=== PATIENT | female | born 1980 | race Caucasian/White ===

== ENCOUNTER 2019-01-22 08:44 | Day surgery (SDC) | payer OTHER, SELFPAY ==
[2019-01-11 14:59] VITALS: BMI 24.9
[2019-01-22] VITALS (12 sets, daily range): BP systolic 82–107; BP diastolic 51–69; PULSE 53–85; RESP 6–17; TEMP 36.1–36.9; O2SAT 95–100; BMI 24.9
--- NOTE | 2019-01-22 | PATH_ITS ---
[facility] Accession Number: [id number] . 01 Material submitted: . endometrium - ENDOMETRIAL CURRETINGS . 02 Diagnosis: Endometrial Curettings: Portions of secretory endometrium with patchy regions of breakdown; negative for glandular hyperplasia, cytologic atypia, and malignancy. MRV/01/25/2019 . 02 Electronically signed: . Blossom Del Rio MD, Pathologist NPI- [id number] . 01 Gross description: . ENDOMETRIAL CURRETINGS: Received in formalin are minute fragments of mucoid and hemorrhagic material measuring 0.6 x 0.6 x 0.3 cm in aggregate. Submitted in toto in 1 cassette. /[facility] /DM . 02 Pathologist provided ICD-10: N85.00 . 02 CPT . 586172 Performed at: 01 [facility] [address] [id number] MD Obdulio Toth MD Phone: [phone] Performed at: 02 [facility] [address] [place], [place] [id number] MD Katheryn Esparza MD Phone: [phone]
[2019-01-22] MEDS: LACTATED RINGERS 1,000 ML 42 ML IV ×2 (09:30→11:22)
--- NOTE | 2019-01-22 10:10 | SUR.OPER ---
Lithotomy on padded OR bed, head on pillow, arms secured on padded arm boards at <90 degrees abduction. Legs secured in padded yellow fins stirrups.
[2019-01-22] MEDS: APREPITANT 40 MG CAPSULE PO (10:20)
--- NOTE | 2019-01-22 10:21 | PM.PREOP ---
Pre-operative Note Interval Note History & Physical reviewed/Exam performed by Physician: Yes Changes to H&P: No
--- NOTE | 2019-01-22 10:21 | PM.HP.1 ---
History of Present Illness Date Patient Seen: 01/22/19 Time Patient Seen: 10:21 Chief complaint: [id number] Narrative: Patient is a 38-year-old woman 6 para 4 who presents with severe dysmenorrhea and menorrhagia for a D&C hysteroscopy and NovaSure endometrial ablation Patient History Medical History (Updated 01/11/19 @ 15:03 by Gemini Robledo RN) History of endometrial biopsy (Acute) Menometrorrhagia (Acute) Surgical History (Updated 01/22/19 @ 09:02 by Ama Bolaños RN) H/O oral surgery (Acute) History of colposcopy (Acute) S/P LEEP (Resolved ~2001) S/P breast augmentation (Resolved ~2015) Social History household members: spouse Smoking Status: Never smoker Family & Social History Social History: household members spouse Tobacco & Substance use: Smoking Status Never smoker Meds Home Medications Medication Instructions Recorded Confirmed Type No Known Home Medications 03/24/18 01/22/19 History Allergies Allergy/AdvReac Type Severity Reaction Status Date / Time No Known Drug Allergies Allergy Verified 01/22/19 09:00 Exam Vital Signs (past 8 hours): - 01/22/19 09:00 Temperature 97.6 F Pulse Rate 84 Respiratory Rate 15 Blood Pressure 102/69 Pulse Oximetry 100 Oxygen Delivery Method Room Air Narrative Exam Narrative: HEENT: No thyromegaly, no anterior cervical or supraclavicular lymphadenopathy. Lungs:Clear to auscultation bilaterally, no wheezes. Cardiovascular: Regular rate and rhythm, no murmurs, rubs, or gallops. Abdomen: No scars. No hepatosplenomegaly. No masses palpable. External genitalia: Normal Vagina: Normal Cervix: Normal Bimanual exam: 8 Week size uterus. Mobile. Rectal: No masses. Assessment & Plan Assessment & Plan narrative: Assessment: 38-year-old 6 para 4024 with severe dysmenorrhea and menorrhagia Plan: D&C hysteroscopy with NovaSure endometrial ablation The risks, benefits, and alternatives to the procedure were explained to the patient. The risks including bleeding, infection, and uterine perforation. She understands these risks and agrees to proceed. A full PAR-Q was held and consent form was signed. Time Spent With Patient Time with patient: 15-24 minutes
--- NOTE | 2019-01-22 11:04 | P.OP_ITS ---
Operative Date/Time/Diagnoses Date of procedure: 01/22/19 Time of procedure: 11:01 Pre-op diagnosis: Menorrhagia Severe dysmenorrhea Post-op diagnosis: same Procedure: Procedures Operation Date: 01/22/19 09:45 Actual Procedures Side Surgeon p Hysteroscopy D&c w/Endometrial Ablation Nicole Mcdonough MD Indications: Menorrhagia Severe dysmenorrhea Surgeon: Nicole Mcdonough Anesthesia Type: General (LMA) Operative Notes Findings: 8 week size anteverted uterus Both fallopian tube ostia observed No polyps or fibroids Closure Type: not applicable Specimen(s): endometrial curettings Estimated blood loss (mL): 10 Blood products transfused: none Procedure in detail: After informed consent was obtained, the patient was taken to the operating room where she was placed in the dorsal supine position. After adequate LMA general anesthesia was achieved, she was placed in the dorsal lithotomy position, and prepped and draped in the usual sterile fashion. a time-out was performed. A bivalve speculum was placed into the vagina and the anterior lip of the cervix grasped with a single-tooth tenaculum. The cervical os was sequentially dilated to the # 8 Hegar dilator. The hysteroscope passed easily into the endometrial cavity. Initial inspection with the hysteroscope revealed the findings noted above. The hysteroscope was removed from the uterus. The uterus was measured from the internal os to the fundus of the uterus and measured 4.5 cm. This was set on the NovaSure catheter as well as the generator. NovaSure catheter passed easily into the endometrial cavity and was opened. The width of the uterus was 4.4 cm. This was set on the NovaSure generator. This indicated a power of 109 w. The cervix was capped, the cavity assessment was performed and passed. The cycle was initiated and lasted 120 seconds. At the completion of the cycle the NovaSure catheter was closed, the cervix was then capped, and the catheter was removed from the uterus. Single- tooth tenaculum was removed from the anterior lip of the cervix. The bivalve speculum was removed from the vagina. Sponge, lap, and instrument counts was correct x2. The patient tolerated the procedure well, and was taken to PACU in stable condition. Complications: none Post-operative Condition: stable Disposition: PACU Plan for aftercare: Home after recovery
[2019-01-22] MEDS: ACETAMINOPHEN 325 MG TABLET 650 MG PO (11:54)
--- NOTE | 2019-01-22 12:06 | SUR.PHASEII ---
Report received. Pt reported 7/10 pain. Denied any needs at this time. Call light within reach.
[2019-01-22] MEDS: hydrOXYzine 50 MG/ML INJ 25 MG IM (13:06)
[2019-01-22] MEDS: ONDANSETRON 4 MG/2 ML INJ IV (13:06)
--- NOTE | 2019-01-22 13:13 | SUR.PHASEII ---
Received report from Riki Dolan. Patient in [place] #4 OPD. Pain evaluation: pain level 8/10. Cramping/Aching abdomen. Cesilia pad dry. Skin cool/pale. IV patent and flowing. Patient also experiencing nausea.
--- NOTE | 2019-01-22 13:15 | SUR.PHASEII ---
Dr. Mcdonough stopped by to see patient in OPD. Patient pain level 9/10. Up to bathroom to void. Scant amount of vaginal bleeding. Gait steady. Medicated with Vistaril and Zofran per verbal order of Dr. Mcbride. Vital signs stable. Continue with plan of care. gama
[2019-01-22] MEDS: fentaNYL 100 MCG/2 ML INJ 50 MCG IV ×2 (13:19→13:43)
--- NOTE | 2019-01-22 14:02 | SUR.PHASEII ---
Pain management Nurses Note: Pain level improved to 5/10. No complaints of nausea. Skin color improved.
--- NOTE | 2019-01-22 14:40 | SUR.PHASEII ---
Pain reassessment note: VSS, O2 sat WNL, Pain level 5/10. No complains of nausea. Patient stated that she wants to go home and curl up in bed. IV discontinued. Up to bathroom to dress for discharge.
--- NOTE | 2019-01-22 14:41 | SUR.PHASEII ---
Discharge note: Prior to discharge, patient complained of feeling dizzy and nauseas. Patient stated that this is how she feels at home when she gets cramps. She shared that she just wanted to go home. Ate a few crackers and sips of vika mulu. No emesis. VSS prior to d/c to home. Discharged instructions reviewed with patient understanding. Discharged at 1440 [address].
== END 2019-01-22 14:40 | disposition home or self-care (01) ==
PROVIDERS: PCP Obstetrics & Gynecology; Visit Provider Obstetrics & Gynecology
PROC: 0U5B8ZZ Destruction of Endometrium, Via Natural or Artificial Opening Endoscopic (ICD-10-PCS; CPT 58563; principal; 2019-01-22 09:45)
DX: N85.00 Endometrial hyperplasia, unspecified (principal)
CPT/HCPCS: 58563; 88305; J1100; J2250; J2405; J2704; J3010; J3410; J8501

== ENCOUNTER → 2019-02-19 16:56 | Outpatient (CLI) | payer OTHER, SELFPAY ==
[2019-02-19 17:51] LABS: Add Manual Diff / Slide Review NO; Basophils Absolute Auto 0 /uL (0-100); Basophils Percent Auto 1.1 % (0-2); Eosinophils Absolute Auto 100 /uL (0-450); Eosinophils Percent Auto 2.7 % (2-4); Hematocrit 33.3 % (36-46); Hemoglobin 10.8 g/dL (12.0-16.0); Lymphocytes Absolute Auto 700 /uL (1100-4500); Lymphocytes Percent Auto 17.5 % (25-40); Mean Corpuscular HGB Conc 32.4 % (30-36); Mean Corpuscular Hemoglobin 26.2 PG (26-34); Monocytes Absolute Auto 300 /uL (0-900); Monocytes Percent Auto 8.4 % (3-14); Neutrophils Absolute Auto 2900 /uL (1500-7000); Neutrophils Percent Auto 70.3 % (50-75); Platelet Count 248 X10^3/uL (150-400); Red Blood Cell Count 4.12 X10^6/uL (4.0-5.2); White Blood Cell Count 4.2 X10^3/uL (4.5-11.0)
[2019-02-19 18:27] LABS: Free T4, Direct Thyroxine 0.97 ng/dL (0.78-2.19)
== END ==
PROVIDERS: PCP Obstetrics & Gynecology; Visit Provider Obstetrics & Gynecology
DX: R53.83 Other fatigue (principal)
CPT/HCPCS: 36415; 84439; 84443; 85025

== ENCOUNTER → 2019-05-19 14:36 | Outpatient (CLI) | payer OTHER, SELFPAY ==
[2019-05-19 14:53] LABS: Add Manual Diff / Slide Review NO; Basophils Absolute Auto 0 /uL (0-100); Basophils Percent Auto 0.5 % (0-2); Eosinophils Absolute Auto 100 /uL (0-450); Hematocrit 40.1 % (36-46); Hemoglobin 13.8 g/dL (12.0-16.0); Lymphocytes Absolute Auto 1200 /uL (1100-4500); Lymphocytes Percent Auto 17.8 % (25-40); Mean Corpuscular HGB Conc 34.3 % (30-36); Mean Corpuscular Hemoglobin 30.8 PG (26-34); Monocytes Absolute Auto 300 /uL (0-900); Monocytes Percent Auto 4.3 % (3-14); Neutrophils Absolute Auto 5000 /uL (1500-7000); Neutrophils Percent Auto 76.4 % (50-75); Platelet Count 217 X10^3/uL (150-400); Red Blood Cell Count 4.46 X10^6/uL (4.0-5.2); Red Cell Distribution Width 14.8 % (11.6-14.8); White Blood Cell Count 6.5 X10^3/uL (4.5-11.0)
[2019-05-19 19:02] LABS: Free T4, Direct Thyroxine 1.11 ng/dL (0.78-2.19)
[2019-05-19 19:16] LABS: Thyroid Stimulating Hormone 0.82 uIU/mL (0.47-4.68)
== END ==
PROVIDERS: PCP Obstetrics & Gynecology; Visit Provider Obstetrics & Gynecology
DX: R53.83 Other fatigue (principal)
CPT/HCPCS: 36415; 84439; 84443; 85025

== ENCOUNTER 2023-11-28 06:59 | Day surgery (SDC) | payer OTHER, SELFPAY ==
[2023-11-28] VITALS (18 sets, daily range): BP systolic 96–115; BP diastolic 54–73; PULSE 50–99; RESP 15–17; TEMP 36.1–36.8; O2SAT 95–100; BMI 27.2
--- NOTE | 2023-11-28 | PATH_ITS ---
[facility] Accession Number: [id number] No. of containers..01 Tissue . 01 Material submitted: . uterus - UTERUS, CERVIX, BILATERAL FALLOPIAN TUBES, LEFT OVARY . 01 Diagnosis: A. UTERUS, CERVIX, BILATERAL FALLOPIAN TUBES, LEFT OVARY, HYSTERECTOMY, BILATERAL SALPINGECTOMY, AND LEFT OOPHORECTOMY: Cervix, extensively inflamed, with parakeratosis suggestive of prolapse-type changes. Extremely denuded endometrium with hyalinization and scant weakly proliferative benign endometrium. Myometrium with focal features suggestive of adenomyosis. Serosa within normal limits. Bilateral fallopian tubes within normal limits. Benign ovary with benign physiologic cysts and atrophic changes. No evidence of malignancy. [facility] 12/03/2023 1420 Local . 01 Electronically signed: . Emily Chris MD, Pathologist NPI- [id number] . 01 Gross description: . The specimen is received in formalin, labeled with the patient's name, , and uterus, cervix, bilateral fallopian tubes, left ovary, and consists of an intact uterus (140 g, 9.5 cm from superior to inferior, 7.0 cm from medial to lateral, 4.5 cm anterior to posterior) with attached cervix (3.3 x 2.9 cm), left fallopian tube (7.1 x 0.9 cm), left ovary (3 gm, 3.5 x 1.5 x 1.0 cm), and right fallopian tube (5.9 x 0.8 cm) with no additional adnexa. The ectocervix is valdes, smooth, and glistening with a patulous os measuring 1.0 cm in diameter. The anterior paracervical margin is inked blue while the posterior paracervical margin is inked black. The serosa is valdes and smooth with no evidence of hemorrhage or adhesion identified. The endocervical canal has valdes herringbone mucosa and measures 2.5 cm in length. The endometrial cavity has valdes, velvety endometrium and measures 1.8 cm from cornu to cornu and 3.8 cm in length. The endometrium averages less than 0.1 cm thick. The myometrium is valdes and trabecular, measuring 2.4 cm in maximum thickness with no nodules or lesions identified. . The left tube has violaceous, smooth serosa with no cystic structures identified. Sectioning reveals an unremarkable stellate lumen. The left ovary has a valdes, cerebriform external surface. Sectioning reveals a thin, smooth-walled cystic structure measuring 0.5 cm in greatest dimension filled with valdes, serous fluid . The remaining cut surface is physiologic and unremarkable. . The right fallopian tube has violaceous, smooth serosa with no cystic structures identified. Sectioning reveals an unremarkable stellate lumen. . Deputy Sheriff Generalist/Bailiff sections are submitted as follows: A1: Anterior cervix. A2: Posterior cervix. A3: Anterior full-thickness section. A4: Posterior full-thickness section. A5: Serosa. A6: Left fallopian tube to include one-half of bisected fimbriae and cross sections. A7: Left ovary. A8: Right fallopian tube to include one-half of bisected fimbriae and cross sections. ([id number]) Additional sections of endometrium are submitted in cassettes A9-A10. ([id number]) /[facility] 12/03/2023 1320 Local . 01 Pathologist provided ICD-10: N93.9 . 01 CPT . 708684 Specimen Comment: A courtesy copy of this report has been sent to [phone] Performed at: 01 [facility] [address] [place] [address], [place], [place] [id number] MD Obdulio Toth MD Phone: [phone]
[2023-11-28] MEDS: LACTATED RINGERS 1,000 ML 42 ML IV ×2 (07:33→10:41)
--- NOTE | 2023-11-28 08:06 | PM.PREOP ---
Pre-operative Note COVID-19 COVID-19 status: Not tested Interval Note History & Physical reviewed/Exam performed by Physician: Yes Changes to H&P: No
[2023-11-28] MEDS: ACETAMINOPHEN IV 1,000 MG/100 ML VIAL 400 MG IV (08:33)
[2023-11-28] MEDS: SCOPOLAMINE 1 PATCH TOP (08:33)
[2023-11-28] MEDS: CEFAZOLIN 2 GM/100 ML PREMIX 100 ML IV (09:47)
[2023-11-28] MEDS: BUPIVACAINE 0.5% (PF) 30 ML, EPINEPHrine 0.15 MG INJ (10:32)
--- NOTE | 2023-11-28 10:33 | SUR.OPER ---
Lithotomy on padded OR bed. Mcbee Pad Positioner under torso. Head on pillow, arms padded and tucked at sides. Legs secured in padded yellow fins stirrups.
[2023-11-28] MEDS: ROPIVACAINE 0.2% PF 2 MG/ML 10ML AMP 20 ML INJ (11:27)
--- NOTE | 2023-11-28 11:51 | P.OP_ITS ---
Operative Date/Time/Diagnoses Date of procedure: 11/28/23 Time of procedure: 09:45 Pre-op diagnosis: Chronic pelvic pain Post endometrial ablation syndrome Pelvic congestion syndrome Post-op diagnosis: same Procedure & Clinicians Procedure: Procedures Operation Date: 11/28/23 08:15 Actual Procedure Side Surgeon p Laparoscopic Total Hysterectomy with bilateral salpingectomy, left oophorectomy Bautista Mcguire MD Surgeon: Bautista Mcguire Business Development Specialist: Marianela Naidu Anesthesia Type: General Operative Notes Findings: The uterus is upper limits of normal size. The anterior and posterior cul-de-sac are completely free of any adhesions or evidence of endometriosis. Both fallopian tubes appeared to be normal. There are significant varicosities involving the left para-uterine veins as well as the left ovarian veins. The right ovary appears to be normal. Minimal dilation of the left ovarian veins are noted. The remainder of the abdomen and pelvis were normal to laparoscopic inspection Closure Type: primary Specimen(s): left tube, right tube and uterus Applied: catheter Estimated blood loss (mL): 125 Blood products transfused: none Procedure in detail: With the patient in modified dorsal lithotomy position preparations were made by prepping and draping the patient in usual manner for vaginal surgery and insertion of Yancey catheter. A pre-surgical time-out was then taken in accordance with [facility] policy. A bivalve speculum was then placed in the vagina and the cervix visualized. The anterior lip of the cervix was then grasped with a single-tooth tenaculum. The uterus was sounded to 7 cm, the endocervical canal dilated slightly, and a VCare uterine manipulator with a large colpotomy cup was placed. The umbilicus was then infiltrated with 0.5% Marcaine with epinephrine. A 1 cm umbilical incision was made transversely and a Veress needle was used to insufflate the abdominal cavity with carbon dioxide. Once the abdomen was appropriately insufflated, a 5 mm trocar and sleeve were then placed through the umbilical incision. The scope was placed through the trocar and the initial assessment of the intra-abdominal contents carried out. A 2nd and 3rd 5 mm port was then placed 1st in the right mid quadrant from then the left mid quadrant by infiltration of the skin and subcutaneous tissues, a 1 cm transverse incision and insertion of the 5 mm bladeless port. Using a 3 puncture technique, the abdomen and pelvis were inspected laparoscopy and photographically documented. Uterus is mobilized with the VCare manipulator and attention turned to the left adnexa. The distal tube was then grasped and the infundibulopelvic ligament divided after coagulation with the PowerSeal device. The dissection was then carried out toward the cornua and dissection was then carried down using the PowerSeal device so as to divide the round ligament with blunt and sharp dissection of the broad down to the level of the uterine artery. The uterine artery was then skeletonized after development of a bladder flap, coagulated, and divided. Once hemostasis was assured on the left side attention was turned to the right and the tube, utero-ovarian ligament, round ligament, and broad ligament were dissected. The right uterine artery was then visualized after skeletonization and coagulated and divided. The uterus was seen to luis after coagulation of both your arteries and the cup was identified through the vaginal muscularis at its insertion with the body of the cervix. Circumferential excision of the vaginal cup was accomplished without difficulty using monopolar current and the uterus mobilized. The uterus was then removed through the vagina and the vaginal cuff closed [id number] with a series of 0 Vicryl [id number] stitches. Hemostasis was excellent, the abdomen was re-insufflated, and the pelvis inspected laparoscopically. The pelvis was inspected for any abnormality or bleeding, and the ureters were each seen to be peristalsing freely. With complete hemostasis assured, the pneumoperitoneum was vented and the ports removed. All of the 5 mm ports were then closed with 4-0 Monocryl on the skin using inverted interrupted sutures. Skin glue was placed and after the glue was dried, an appropriate dressing was applied. The case was then terminated, the patient awakened, and then transferred to PACU after having tolerated the procedure well. Complications: none Post-operative Condition: stable Disposition: PACU Plan for aftercare: Recovery in ambulatory surgery in discharge home later today if pain is under control and she is tolerating oral intake well.
[2023-11-28] MEDS: HYDROMORPHONE 1 MG INJ IV (12:10)
[2023-11-28] MEDS: OXYCODONE IR 5 MG TABLET PO (12:12)
[2023-11-28] MEDS: ONDANSETRON 4 MG/2 ML INJ IV ×3 (12:12→17:11)
[2023-11-28] MEDS: LACTATED RINGERS 1,000 ML 100 ML IV (13:57)
[2023-11-28] MEDS: ACETAMINOPHEN 325 MG TABLET 650 MG PO (14:59)
--- NOTE | 2023-11-28 16:44 | PC.NURSE ---
Addendum entered by Alesia Sanford R.N. 11/28/23 16:46: pt requests to avoid all narcotic pain medications would like to take only the tylenol and toradol as scheduled for pain. Original Note: 1640 Removed gómez catheter per pt request, educated pt on the need to drink plenty of water, pt aware she will need to void within the next few hours. No further needs at this time
[2023-11-28] MEDS: KETOROLAC 30 MG/ML VIAL IV (17:11)
--- NOTE | 2023-11-28 17:32 | PM.DS.1 ---
History of Present Illness History of Present Illness Date Patient Seen: 11/28/23 Time Patient Seen: 17:32 Chief complaint: Post endometrial ablation syndrome Narrative: Christina is a 43-year-old , LMP 11/14/2023 who presents with a multiyear history of chronic pelvic pain and severe dysmenorrhea. Patient's menses began at age 9 and she has always had pain with her periods as well as pain for a few days prior to onset of her menses. Patient has had irregular cycles throughout her reproductive life with intervals ranging between 16 and 33 days. She denies intermenstrual bleeding or postcoital bleeding. Because of her abnormal menses, she underwent endometrial ablation in 2019 which improved her menstrual flow someone but has been associated with progressively severe pelvic pain throughout the cycle and marked increase during episodes of bleeding which often times leave her incapacitated and unable to perform normal daily activities including but not limited to work. Her most recent Pap was a few months ago and her Paps have been normal with the exception of a Pap back in 1999 3 which necessitated performance of a LEEP. Paps since that time have been unremarkable with the exception of a single Pap in 2012 which necessitated colposcopy but no treatment was required. Patient has a long history of dysmenorrhea with oral contraceptives initiated following her 1st delivery at age 16. She remained on control pills nearly continuously from 1996 through 2012 which time she came off oral contraceptives. Pain with her periods was markedly worse off the oral contraceptives and then worsened even further after performance of the ablation in 2019. Patient denies any past history of fertility issues but she has significant deep dyspareunia with continuous pelvic pain now in some discomfort even on the posterior aspect of her thighs bilaterally. Contraception is by vasectomy. Recent pelvic imaging at the [facility] includes a CT of the pelvis with contrast which showed small bilateral adnexal cysts but no other significant abnormalities noted. A venous ultrasound of the lower extremities and pelvis was performed 09/26/2003 which showed the left ovarian vein is retrograde with maximum diameter of 10.7 mm. Right ovarian vein is antegrade with a maximum diameter of 4.2 mm. Periuterine veins were also noted bilaterally (3.8 mm on the right and 6.9 mm on the left. Pelvic ultrasound performed at [facility] on 08/13/2023 showed the uterus to be anteverted and normal in size at 7.7 x 5.2 x 4.5 cm. The myometrium is described as homogeneous. The endometrium measures 1.0 mm in combined thickness. The right ovary is 3.2 x 2.5 x 1.1 cm with a calculated ovarian volume of 5.0 cc. The left ovary measures 3.8 x 3.4 x 2.7 cm with a calculated ovarian volume of 18 cc. Ovaries both have normal sonographic appearance with a 2.5 cm left ovarian follicle noted. Prominent adnexal vascularity was also noted on that study. There was no pathologic free fluid or abdominal fluid noted. Patient's family history is notable for a paternal great grandmother who had ovarian cancer and another paternal relative with breast cancer. She has no breast or ovarian cancer on the maternal line. Although she is currently having menses on a fairly regular basis, she feels as though she is beginning the perimenopause and is having some issues which she attributes to shifting hormonal levels. We had an extensive discussion regarding potential sources of her pain but her pelvic exam would strongly suggest that her pain is primarily uterine in origin. Given her history of the pain worsening markedly following endometrial ablation, post endometrial ablation syndrome would seem to be the most reasonable cause of her pain although peritoneal endometriosis can not be excluded. In addition, pelvic congestion syndrome may be contributing to her pain syndrome and it is notable that her pain is primarily on the left side where both the ovarian and periuterine veins are more noticeably enlarged. After discussing all options for treatment, the patient would very much like to proceed with hysterectomy. Will plan to schedule total laparoscopic hysterectomy with bilateral salpingectomy and probable left oophorectomy due to dilated ovarian veins on the left side. At the same time will be able to evaluate the pelvis for possible peritoneal endometriosis which may also be present given the nature of her pain symptoms. She presents for her scheduled surgery. Discharge Providers Provider Date of admission: 11/28/2023 Discharge Date: 11/28/23 Primary care physician: KELLEY Livingston Discharge provider: Bautista Mcguire MD Summary Hospital Course Discharge Diagnosis: Post endometrial ablation syndrome Chronic pelvic pain Pelvic engorgement syndrome Status post total laparoscopic hysterectomy with left salpingo oophorectomy and left salpingectomy Hospital Course: On the morning of 11/28/2023, the patient was admitted and underwent an uneventful total laparoscopic hysterectomy with left salpingo-oophorectomy and right salpingectomy. Full details of the procedure well summarized on my operative note of that date. Following surgery the patient has done exceptionally well with prompt return of bowel and bladder function, she is ambulating independently, tolerating her regular diet, and her pain is well controlled with oral pain medications. She will be discharged at this time to home in an afebrile normotensive condition after counseling regarding precautionary symptoms, limitations of activity, medications, and plans for follow-up which will be in 2 weeks. Medications at discharge will include resumption of her preadmission medications as well as oxycodone 5 mg every 4-6 hours as needed for pain, dispense 20, with no refills, and Cipro 500 mg p.o. b.i.d. x5 days for UTI prophylaxis following catheterization. Status at Discharge Cognitive/behavioral status at discharge: oriented Functional status at discharge: independent ambulation Overall status at discharge: patient is progressing back to baseline Time Spent with Patient Time spent: Less than 30 minutes Exam Vital Signs (past 8 hours): - 11/28/23 11:55 11/28/23 12:00 11/28/23 12:10 Temperature 97.0 F L Pulse Rate 75 68 68 Respiratory Rate 16 16 16 Blood Pressure 99/68 100/60 100/60 Pulse Oximetry 98 98 98 Oxygen Delivery Method Room Air Room Air Room Air 11/28/23 12:15 11/28/23 12:20 11/28/23 12:30 Temperature Pulse Rate 86 68 68 Respiratory Rate 16 15 16 Blood Pressure 102/66 96/60 98/66 Pulse Oximetry 98 98 98 Oxygen Delivery Method Room Air Room Air Room Air 11/28/23 12:35 11/28/23 12:40 11/28/23 13:00 Temperature 98.2 F 97.8 F Pulse Rate 50 L 93 H Respiratory Rate 16 16 16 Blood Pressure 98/69 110/66 Pulse Oximetry 98 98 Oxygen Delivery Method Room Air 11/28/23 13:05 11/28/23 13:30 11/28/23 13:30 Temperature Pulse Rate 75 77 90 Respiratory Rate 16 Blood Pressure 111/73 Pulse Oximetry 98 100 98 Oxygen Delivery Method 11/28/23 14:00 11/28/23 14:30 11/28/23 14:30 Temperature Pulse Rate 84 94 H 92 H Respiratory Rate 16 Blood Pressure 115/70 Pulse Oximetry 96 95 99 Oxygen Delivery Method 11/28/23 15:00 11/28/23 15:30 11/28/23 15:30 Temperature Pulse Rate 99 H 98 H 94 H Respiratory Rate 16 Blood Pressure 110/65 Pulse Oximetry 97 100 96 Oxygen Delivery Method 11/28/23 15:33 11/28/23 15:33 11/28/23 16:00 Temperature 97.8 F Pulse Rate 94 H Respiratory Rate 16 Blood Pressure 102/54 L 101/59 L Pulse Oximetry 96 Oxygen Delivery Method 11/28/23 16:00 Temperature Pulse Rate 89 Respiratory Rate Blood Pressure Pulse Oximetry 95 Oxygen Delivery Method Oxygen Delivery Method Room Air Const General: cooperative and comfortable Nutritional Appearance: average body habitus Orientation: alert and oriented x3 HENMT Head: normal to inspection, atraumatic and abrasion Ears: hearing grossly normal bilaterally Face and sinus: face symmetric Eyes General: appearance normal, both eyes and all related structures Conjunctivae: conjunctivae normal Sclera: sclerae normal EOM: EOM intact bilaterally Neck Neck: normal visual inspection Resp Effort & Inspection: normal respiratory effort and able to speak in complete sentences Auscultation: clear to auscultation bilaterally Cardio Rate: regular rate Rhythm: regular rhythm Heart Sounds: S1 normal, S2 normal and no murmurs GI Inspection: normal to inspection and incision (Surgical dressings clean and dry) Palpation: soft, no hepatosplenomegaly and tender (Mild, diffuse postsurgical tenderness) External Female Exam: other (No significant bleeding noted) Extrem General: no calf tenderness Psych Appearance: grossly normal Mental Status: mental status grossly normal Speech and Movement: speech and movement normal Mood: congruent mood Affect: normal affect Attitude: cooperative Thought Process: normal Thought Content: normal Judgment: judgment good [facility] Medical History (Updated 11/18/23 @ 14:33 by Bautista Mcguire MD) History of endometrial biopsy Menometrorrhagia Surgical History (Updated 11/18/23 @ 13:47 by Bautista Mcguire MD) History of endometrial ablation H/O oral surgery History of colposcopy S/P LEEP (~2001) S/P breast augmentation (~2015) Social History household members: spouse Smoking Status: Never smoker alcohol intake: never Discharge Assessment & Plan Assessment and Plan Assessment: Post endometrial ablation syndrome Chronic pelvic pain Pelvic engorgement syndrome Status post total laparoscopic hysterectomy with left salpingo oophorectomy and left salpingectomy Plan of Treatment: Routine postoperative care with follow-up planned for 2 weeks postop Discharge Plan Discharge Plan Patient Disposition: Home Provider Discharge Comment: Please review the written instructions you received when you were discharged from the hospital. Your follow-up appointment will be scheduled for 2 weeks after your surgery and I look forward to seeing you then. If however in the meanwhile you have any questions, concerns, or other issues, please contact the office either by phone at [phone], or via the patient portal. Discharge orders & Medications Discharge Orders: Discharge (Order); Ordered 11/28/23 Ordered By: Bautista Mcguire Prescriptions: New ciprofloxacin HCl [Cipro] 500 mg tablet 500 mg PO BID 5 Days Qty: 10 0RF Follow up/Referrals: Linn Brown ARNP [Primary Care Provider] - Bautista Mcguire MD [Physician] - Diet/Activity/Treatments Diet: Diet as Tolerated Activity: As tolerated Other treatments: [id number]-pbtepan Tylenol and/or ibuprofen may used for additional pain relief. Enbv-mje-yobhubb stool softeners and/or MiraLax may be used as needed for constipation. Skin/Wound/Dressing Care Report to your healthcare provider any signs of infection, such as:: chills, fever, increased pain, unusual drainage and unusual redness Dressing: Dressings should be removed on the morning of 11/30/2023 Visit Report/Discharge Packet Instructions: DI for Hysterectomy, DI for Laparoscopy Stand Alone Forms: Surgery Discharge Print Language: Citizen Of [place] Discharge Data Primary Care Provider: Linn Brown Attending Provider: Bautista Mcguire
== END 2023-11-28 18:26 | disposition home or self-care (01) ==
LOC: OR 07:00 → AC 07:01 → ICU 13:12
PROVIDERS: PCP Nurse Practitioner Family; Referring Provider Obstetrics & Gynecology; Visit Provider Obstetrics & Gynecology
PROC: 0UT94ZZ Resection of Uterus, Percutaneous Endoscopic Approach (ICD-10-PCS; CPT 58571; principal; 2023-11-28 08:15)
DX: R10.2 Pelvic and perineal pain (principal); N83.292 Other ovarian cyst, left side
CPT/HCPCS: 58571; J0136; J0171; J0690; J1100; J1170; J1885; J2250; J2405; J2704; J2795; J3010

== ENCOUNTER → 2023-12-26 11:21 | Outpatient (CLI) | payer OTHER, SELFPAY ==
[2023-11-28 13:15] VITALS: BMI 27.2
[2023-12-26 13:16] LABS: Add Manual Diff / Slide Review NO; Basophils Absolute Auto 0 /uL (0-100); Basophils Percent Auto 0.8 % (0-2); Eosinophils Absolute Auto 100 /uL (0-450); Eosinophils Percent Auto 2.3 % (2-4); Hematocrit 37.9 % (36-46); Hemoglobin 12.8 g/dL (12.0-16.0); Lymphocytes Absolute Auto 1000 /uL (1100-4500); Lymphocytes Percent Auto 19.3 % (25-40); Mean Corpuscular HGB Conc 33.9 % (30-36); Mean Corpuscular Hemoglobin 31.7 PG (26-34); Mean Corpuscular Volume 93.6 fL (80-100); Monocytes Absolute Auto 300 /uL (0-900); Monocytes Percent Auto 6.9 % (3-14); Neutrophils Absolute Auto 3500 /uL (1500-7000); Neutrophils Percent Auto 70.7 % (50-75); Platelet Count 261 X10^3/uL (150-400); Red Blood Cell Count 4.05 X10^6/uL (4.0-5.2); Red Cell Distribution Width 12.8 % (11.6-14.8); White Blood Cell Count 4.9 X10^3/uL (4.5-11.0)
[2023-12-26 13:46] LABS: Iron 96 ug/dL (37-170)
[2023-12-26 13:54] LABS: Alanine Aminotransferase 15 IU/L (<35); Albumin 4.4 g/dL (3.5-5.0); Albumin Globulin Ratio 1.5 (1.0-2.8); Alkaline Phosphatase 64 U/L (38-126); Aspartate Aminotransferase 24 IU/L (14-36); BUN Creatinine Ratio 15.9 (6-22); Bilirubin Total 0.5 mg/dL (0.2-1.3); Blood Urea Nitrogen 10 mg/dL (7-17); Calcium 9.4 mg/dL (8.4-10.2); Carbon Dioxide 27 mmol/L (22-32); Chloride 106 mmol/L (98-107); Estimated Glomerular Filt Rate > 60 mL/min (>60); Glucose 82 mg/dL (70-100); HEMOLYSIS < 15 (0-50); Lipase 50 U/L (23-300); Potassium 4.3 mmol/L (3.4-5.1); Sodium 139 mmol/L (137-145); Total Protein 7.4 g/dL (6.3-8.2)
[2023-12-26 13:58] LABS: Vitamin D 25 Hydroxy (D3) 50.4 ng/mL (30.0-100.0)
[2023-12-26 14:38] LABS: Vitamin B12 948 pg/mL (239-931)
[2023-12-26 15:36] LABS: Hemoglobin A1C% w Est Avg Glu 4.7 % (4.0-6.0)
[2023-12-30 17:19] LABS: ANA Screen, IFA Negative (.)
[2023-12-30 23:37] LABS: Vitamin B1 63.5 nmol/L (66.5-200.0)
== END ==
PROVIDERS: PCP Family Medicine; Referring Provider Family Medicine; Visit Provider Family Medicine
DX: K58.1 Irritable bowel syndrome with constipation (principal); R14.0 Abdominal distension (gaseous); K21.9 Gastro-esophageal reflux disease without esophagitis; E66.3 Overweight; Z86.2 Personal history of diseases of the blood and blood-forming organs and certain disorders involving the immune mechanism; Z78.9 Other specified health status
CPT/HCPCS: 36415; 80053; 82306; 82607; 83036; 83540; 83690; 84425; 85025; 86038

== ENCOUNTER → 2024-01-08 16:07 | Outpatient (CLI) | payer OTHER, SELFPAY ==
[2023-11-28 13:15] VITALS: BMI 27.2
--- NOTE | 2024-01-08 16:08 | DI.US.S_ITS ---
PROCEDURE: US ARTERIAL DUPLEX LE BI INDICATIONS: Ongoing LE bilateral pain TECHNIQUE: Color and pulse Doppler interrogation was performed of both lower extremity arterial systems, with image documentation. COMPARISON: None. FINDINGS: Right lower extremity: Common femoral artery: 145 cm/sec, with triphasic flow. Deep femoral artery: 77 cm/sec, with triphasic flow. Proximal superficial femoral artery: 108 cm/sec, with triphasic flow. Mid superficial femoral artery: 115 cm/sec, with triphasic flow. Distal superficial femoral artery: 75 cm/sec, with triphasic flow. Popliteal artery: 57 cm/sec, with triphasic flow. Posterior tibial artery: 90 cm/sec, with triphasic flow. Anterior tibial artery/dorsalis pedis: 43 cm/sec, with triphasic flow. Reid-scale imaging description: No hemodynamically significant stenosis. Left lower extremity: Common femoral artery: 107 cm/sec, with triphasic flow. Deep femoral artery: 91 cm/sec, with triphasic flow. Proximal superficial femoral artery: 119 cm/sec, with triphasic flow. Mid superficial femoral artery: 124 cm/sec, with triphasic flow. Distal superficial femoral artery: 90 cm/sec, with triphasic flow. Popliteal artery: 49 cm/sec, with triphasic flow. Posterior tibial artery: 77 cm/sec, with triphasic flow. Anterior tibial artery/dorsalis pedis: 48 cm/sec, with triphasic flow. Reid-scale imaging description: No focal hemodynamically significant stenosis IMPRESSION: No focal hemodynamically significant stenosis of the bilateral lower extremity arteries. Dictated by: Kristin Reyna M.D. on 01/08/2024 at 17:53 Approved by: Kristin Reyna M.D. on 01/08/2024 at 17:54
== END ==
LOC: US 16:08
PROVIDERS: PCP Family Medicine; Referring Provider Family Medicine; Visit Provider Family Medicine
DX: M79.604 Pain in right leg (principal); M79.605 Pain in left leg; G89.29 Other chronic pain
CPT/HCPCS: 93925

== ENCOUNTER → 2024-01-09 14:34 | Outpatient (CLI) | payer OTHER, SELFPAY ==
[2023-11-28 13:15] VITALS: BMI 27.2
[2024-01-09 15:55] LABS: Erythrocyte Sedimentation Rate 10 MM/HR (0-20)
[2024-01-09 15:57] LABS: C-Reactive Protein Quant < 0.5 mg/dL (<1.0)
[2024-01-09 15:59] LABS: Rheumatoid Factor < 8.6 IU/mL (<12.0)
[2024-01-14 16:18] LABS: ANA Screen, IFA Negative (.)
== END ==
PROVIDERS: PCP Family Medicine; Referring Provider Family Medicine; Visit Provider Family Medicine
DX: I87.2 Venous insufficiency (chronic) (peripheral) (principal); K58.1 Irritable bowel syndrome with constipation; D64.9 Anemia, unspecified; M54.9 Dorsalgia, unspecified; G89.29 Other chronic pain; R20.0 Anesthesia of skin; R20.2 Paresthesia of skin; Z82.49 Family history of ischemic heart disease and other diseases of the circulatory system
CPT/HCPCS: 36415; 85651; 86038; 86140; 86430

== ENCOUNTER → 2024-01-13 06:57 | Outpatient (CLI) | payer OTHER, SELFPAY ==
[2023-11-28 13:15] VITALS: BMI 27.2
--- NOTE | 2024-01-13 07:10 | DI.ECHO.S_ITS ---
[facility]---------+ [facility] +---------+ : : [address] : : : : [id number] : : : : Phone: [phone]+ Echocardiogram Report + + :Name: EFRAÍN FRANK Study Date: 01/13/2024 Height: 68 in : :[facility] ReadingLocation: Weight: 182 lb : : Gender: Female BSA: 2.0 m2 : :: 1980 Age: 43 yrs BP: 100/70 mmHg: :Reason For Study: CHRONIC LOWER EXTREMITY EDEMA, HISTORY OF : :SLEEP APNEA : :Ordering Physician: REECE, : :QIAN Performed By: Alysa Delgado : :Referring: QIAN NEWELL : + + Interpretation Summary The left ventricle is normal in size and wall thickness. Left ventricular systolic function appears normal without focal wall motion abnormalities. The ejection fraction is estimated to be 55-60%. Diastolic parameters suggest probable normal left ventricular diastolic function and normal filling pressures. The right ventricle is normal in size and function. The left atrial size is normal. There is mild to moderate mitral regurgitation. There is no other significant valvular heart disease. The aortic root is normal size. Procedure: A two-dimensional transthoracic echocardiogram with color flow and Doppler was performed. The study quality was technically adequate. Comparison is made with the echocardiogram of 09/26/2020. The patient was in sinus rhythm with heart rates between 59-76 bpm during the exam. Left Ventricle: The left ventricle is normal in size and wall thickness. Left ventricular systolic function appears normal without focal wall motion abnormalities. The ejection fraction is estimated to be 55-60%. Diastolic parameters suggest probable normal left ventricular diastolic function and normal filling pressures. Right Ventricle: The right ventricle is normal in size and function. Atria: The left atrial size is normal. Right atrial size is normal. There is no Doppler evidence for an interatrial shunt. Mitral Valve: The mitral valve leaflets appear normal. There is no evidence of stenosis, fluttering, or prolapse. There is mild to moderate mitral regurgitation. Aortic Valve: The aortic valve is trileaflet. The aortic valve opens well. There is no aortic valve stenosis. Tricuspid Valve: There is trace tricuspid regurgitation. Pulmonic Valve: The pulmonic valve leaflets are thin and pliable; valve motion is normal. There is a trace or physiologic amount of pulmonic regurgitation. There is no other significant valvular heart disease. Great Vessels: The aortic root is normal size. The dimensions of the ascending aorta are normal. The IVC is of normal diameter and collapses greater than 50% with a sniff. This suggests a low right atrial pressure of 3 mm Hg. Pericardium/ Pleura There is no pericardial effusion. There is no pleural effusion. MMode/2D Measurements & Calculations LVIDd: 4.5 cm LVOT diam: 2.1 cm LVIDs: 3.2 cm Ao root diam: 2.9 cm FS: 27.5 % asc Aorta Diam: 2.8 cm IVSd: 0.80 cm Ao Arch Diam (Prox Trans): 1.8 cm LVPWd: 0.82 cm LV willis. diameter/BSA (cm/m^2): 2.3 LV sys. diameter/BSA (cm/m^2): 1.7 LA A2 area: 15.5 cm2 RA long axis: 4.1 cm LA A4 area: 12.5 cm2 RA area: 12.1 cm2 LA length (vol): 4.2 cm RA vol: 30.3 ml LA vol: 39.1 ml RA : 15.4 ml/m2 LA vol index: 19.9 ml/m2 IVC diam: 1.7 cm RVD1 (basal): 3.3 cm RVD2 (mid): 2.6 cm TAPSE: 1.8 cm Doppler Measurements & Calculations Ao V2 max: 112.7 cm/sec LVOT Max Mohsen: 89.7 cm/sec Ao V2 mean: 85.4 cm/sec LV V1 max P.2 mmHg Ao max P.1 mmHg LV V1 VTI: 21.4 cm Ao mean P.1 mmHg GABRIELLE(I,D): 2.6 cm2 Ao V2 VTI: 27.6 cm GABRIELLE(V,D): 2.7 cm2 sev ratio: 0.77 GABRIELLE indexed to BSA (cm^2/m^2): 1.3 MV E max mohsen: 73.1 cm/sec TR max mohsen: 194.7 cm/sec MV A max mohsen: 41.8 cm/sec TR max P.2 mmHg MV E/A: 1.8 PA V2 max: 78.3 cm/sec Med Peak E' Mohsen: 12.1 cm/sec PA V2 mean: 56.2 cm/sec E/E' med: 6.0 PA mean P.4 mmHg Lat Peak E' Mohsen: 17.1 cm/sec PA pr(Accel): 17.3 mmHg E/E' lat: 4.3 E/e' average: 5.1 MV dec time: 0.25 sec MVA(VTI): 2.7 cm2 MR ERO: 0.15 cm2 MV V2 mean: 54.8 cm/sec MR PISA: 2.5 cm2 MV mean P.4 mmHg MR flow rate: 68.8 cm3/sec MV V2 VTI: 26.5 cm MR PISA radius: 0.63 cm SV(LVOT): 72.2 ml Reading Physician:08:18 AM
== END ==
LOC: ECHO 06:58
PROVIDERS: PCP Family Medicine; Referring Provider Family Medicine; Visit Provider Family Medicine
DX: G47.30 Sleep apnea, unspecified (principal); R60.0 Localized edema; I34.1 Nonrheumatic mitral (valve) prolapse
CPT/HCPCS: 93306

== ENCOUNTER → 2024-01-30 14:01 | Outpatient (CLI) | payer OTHER, SELFPAY ==
[2023-11-28 13:15] VITALS: BMI 27.2
[2024-01-30 15:03] LABS: Follicle Stimulating Hormone 30.4 mIU/mL
[2024-01-30 15:17] LABS: TSH w/ Reflex to FT4 0.93 uIU/mL (0.47-4.68)
[2024-01-30 15:19] LABS: Estradiol, Total 109.6 pg/mL
== END ==
PROVIDERS: PCP Family Medicine; Referring Provider Family Medicine; Visit Provider Family Medicine
DX: E23.7 Disorder of pituitary gland, unspecified (principal); E66.3 Overweight; K58.1 Irritable bowel syndrome with constipation; G47.30 Sleep apnea, unspecified; R68.82 Decreased libido; R10.2 Pelvic and perineal pain; G89.29 Other chronic pain; D64.9 Anemia, unspecified; L65.9 Nonscarring hair loss, unspecified; R44.2 Other hallucinations; R63.1 Polydipsia
CPT/HCPCS: 36415; 82670; 82672; 83001; 84144; 84443; 84999

== ENCOUNTER → 2024-02-17 13:54 | Outpatient (CLI) | payer OTHER, SELFPAY ==
[2023-11-28 13:15] VITALS: BMI 27.2
--- NOTE | 2024-02-17 13:55 | DI.MRI.S_ITS ---
PROCEDURE: MR BRAIN (PITUITARY) WWO CON INDICATIONS: Disorder of pituitary gland, unspecified TECHNIQUE: Noncontrast sagittal and axial FLAIR, axial gradient echo, axial diffusion and ADC through the brain. Thin-slice sagittal and coronal T1 spin echo, coronal T2 fast spin echo through the pituitary. After the administration contrast, optional dynamic coronal T1 spin echo, thin-slice coronal and sagittal T1 spin echo images through the pituitary fossa; axial and coronal and sagittal T1 spin echo with fat saturation through the brain. COMPARISON: None. FINDINGS: Image quality: Excellent. Pituitary Gland: Within the anterior lobe of the pituitary gland, there is a hypointense nodule measuring 0.5 x 0.7 by 0.4 cm in the left aspect of the gland deviating the infundibulum to the right. No significant suprasellar extension. Optic chiasm unremarkable. Cystic component noted on precontrast images. Cavernous sinus normal. CSF Spaces: Ventricles are normal in size and shape. Basal cisterns are patent. No extra-axial fluid collections. Brain: No intracranial bleeds or mass effects. No abnormal intracranial enhancement. Reid-white matter interface is intact. Diffusion weighted images demonstrate no acute ischemic insults. Brainstem is normal. Normal intravascular flow voids are present. Skull and face: Calvarial marrow is normal in signal. Orbits appear normal. Sinuses: Sinuses and mastoids are clear. IMPRESSION: Pituitary microadenoma with cystic component. No suprasellar extension or cavernous sinus invasion Approved by: Renan Barros M.D. on 02/17/2024 at 16:29
== END ==
PROVIDERS: PCP Family Medicine; Referring Provider Family Medicine; Visit Provider Family Medicine
DX: E23.7 Disorder of pituitary gland, unspecified (principal); R68.82 Decreased libido; R44.2 Other hallucinations; R10.2 Pelvic and perineal pain; G89.29 Other chronic pain; D64.9 Anemia, unspecified; G47.30 Sleep apnea, unspecified; R63.1 Polydipsia
CPT/HCPCS: 70553; A9579

== ENCOUNTER → 2024-07-28 11:46 | Outpatient (CLI) | payer OTHER, SELFPAY ==
[2023-11-28 13:15] VITALS: BMI 27.2
--- NOTE | 2024-07-28 11:59 | DI.MG.S_ITS ---
BILATERAL DIGITAL SCREENING MAMMOGRAM 3D/2D WITH CAD: 07/28/2024 CLINICAL: Routine screening. Family history of breast cancer. Comparison is made to exams dated: 01/08/2021 mammogram and 01/27/2020 mammogram - [facility]. There are scattered areas of fibroglandular density (category b / 25%-50% glandular tissue). Current study was also evaluated with a Computer Aided Detection (CAD) system. No significant masses, calcifications, or other findings are seen in either breast. There has been no significant interval change. IMPRESSION: NEGATIVE There is no mammographic evidence of malignancy. A 1 year screening mammogram is recommended. Based on the Tyrer Cuzick model (a risk assessment model) the patient's lifetime risk is 8.4% and her 10 year risk is 1.9%. According to the ACR, ACS, and NCCN guidelines, an annual breast MRI exam along with mammogram is recommended if the patient's lifetime risk is 20% or greater. This exam was interpreted at Station ID: [id number]. NOTE: For mammograms, a report in lay terms will be sent to the patient. Approximately 15% of breast malignancies will not be visualized mammographically. In the management of a palpable breast mass, a negative mammogram must not discourage biopsy of a clinically suspicious lesion. Electronically Signed By: Felicia gonzales/jhonatan:07/28/2024 19:23:29 letter sent: Normal Exam ACR BI-RADS Category 1: Negative
== END ==
PROVIDERS: PCP Family Medicine; Referring Provider Family Medicine; Visit Provider Family Medicine
DX: Z12.31 Encounter for screening mammogram for malignant neoplasm of breast (principal); Z80.3 Family history of malignant neoplasm of breast
CPT/HCPCS: 77063; 77067

== ENCOUNTER → 2024-10-08 09:52 | Outpatient (CLI) | payer OTHER, SELFPAY ==
[2023-11-28 13:15] VITALS: BMI 27.2
[2024-10-08 11:13] LABS: Alanine Aminotransferase 18 IU/L (<35); Albumin 4.2 g/dL (3.5-5.0); Albumin Globulin Ratio 1.8 (1.0-2.8); Alkaline Phosphatase 55 U/L (38-126); Aspartate Aminotransferase 24 IU/L (14-36); BUN Creatinine Ratio 8.5 (6-22); Bilirubin Total 0.3 mg/dL (0.2-1.3); Blood Urea Nitrogen 6 mg/dL (7-17); Calcium 9.5 mg/dL (8.4-10.2); Carbon Dioxide 27 mmol/L (22-32); Chloride 105 mmol/L (98-107); Estimated Glomerular Filt Rate > 60 mL/min (>60); Globulin 2.3 g/dL (1.7-4.1); Glucose 75 mg/dL (70-100); HEMOLYSIS < 15 (0-50); Potassium 4.7 mmol/L (3.4-5.1); Sodium 137 mmol/L (137-145); Total Protein 6.5 g/dL (6.3-8.2)
[2024-10-08 11:31] LABS: Free T3, Triiodothyronine Free 3.23 pg/mL (2.77-5.27); Free T4, Direct Thyroxine 1.53 ng/dL (0.78-2.19)
[2024-10-08 11:48] LABS: Thyroid Stimulating Hormone < 0.015 uIU/mL (0.47-4.68)
== END ==
LOC: LAB 09:53
PROVIDERS: PCP Family Medicine; Referring Provider Family Medicine; Visit Provider Family Medicine
DX: E03.8 Other specified hypothyroidism (principal); D35.2 Benign neoplasm of pituitary gland; E66.3 Overweight
CPT/HCPCS: 36415; 80053; 84439; 84443; 84481

== ENCOUNTER → 2024-11-18 16:12 | Outpatient (CLI) | payer OTHER, SELFPAY ==
[2023-11-28 13:15] VITALS: BMI 27.2
[2024-11-18 17:26] LABS: Free T3, Triiodothyronine Free 3.73 pg/mL (2.77-5.27); Free T4, Direct Thyroxine 1.35 ng/dL (0.78-2.19)
[2024-11-18 17:40] LABS: Thyroid Stimulating Hormone 0.017 uIU/mL (0.47-4.68)
== END ==
LOC: LAB 16:13
PROVIDERS: PCP Family Medicine; Referring Provider Family Medicine; Visit Provider Family Medicine
DX: E03.8 Other specified hypothyroidism (principal)
CPT/HCPCS: 36415; 84439; 84443; 84481

== ENCOUNTER → 2025-01-25 15:08 | Outpatient (CLI) | payer OTHER, SELFPAY ==
[2023-11-28 13:15] VITALS: BMI 27.2
--- NOTE | 2025-01-25 15:09 | DI.US.S_ITS ---
PROCEDURE: US PELVIC COMPLETE INDICATIONS: R side pelvic pain TECHNIQUE: Real-time scanning was performed of the pelvic organs, with image documentation. Additional endovaginal scanning was necessary due to incomplete visualization of the adnexal and endometrial structures by transabdominal scanning. COMPARISON: [facility], US, US PELVIC COMPLETE, 03/24/2018, 12:01. FINDINGS: Uterus: Uterus is absent. Ovaries: The right ovary measures 3.5 x 2.6 x 2.7 cm, with a calculated ovarian volume of point cc. The left ovary is not visualized. Other: No pathologic free abdominal or pelvic fluid. IMPRESSION: Nonvisualization of the uterus and left ovary. Right ovary and adnexal region unremarkable. We strive to produce accurate, complete, and clear reports of imaging services. To assist us in improving patient care, this report was composed using standard report templates and voice recognition software. Therefore, it may contain abnormal punctuation, insertions and/or omissions. Occasional wrong-word or sound-alike substitutions may occur. Though we review the report and make efforts to correct it, we do recommend that the report be read carefully in proper context to recognize any text inaccuracies. Dictated by: Kamila Newby M.D. on 01/25/2025 at 20:36 Approved by: Kamila Newby M.D. on 01/25/2025 at 20:40
== END ==
LOC: US 15:09
PROVIDERS: PCP Family Medicine; Referring Provider Obstetrics & Gynecology; Visit Provider Obstetrics & Gynecology
DX: R10.2 Pelvic and perineal pain (principal); Z90.710 Acquired absence of both cervix and uterus
CPT/HCPCS: 76830; 76856; 93976

== ENCOUNTER → 2025-06-14 17:15 | Outpatient (CLI) | payer OTHER, SELFPAY ==
[2023-11-28 13:15] VITALS: BMI 27.2
--- NOTE | 2025-06-14 17:16 | DI.RAD.S_ITS ---
PROCEDURE: XR CERVICAL SPINE 2V OR 3V INDICATIONS: pain and radicular changes TECHNIQUE: Four views) of the cervical spine were acquired. COMPARISON: None. FINDINGS: Cervical spine curvature and alignment: Normal. Bones: There are no osseous abnormalities. Disc spaces: Normal in height without significant degeneration. Soft tissues: No soft tissue swelling, calcification or mass. IMPRESSION: Normal cervical spine. Dictated by: Sarthak Dozier M.D. on 06/15/2025 at 12:36 Approved by: Sarthak Dozier M.D. on 06/15/2025 at 12:36
--- NOTE | 2025-06-14 17:16 | DI.RAD.S_ITS ---
PROCEDURE: XR THORACIC SPINE 3V INDICATIONS: pain and radicular changes TECHNIQUE: 3 views of the thoracic spine were acquired. COMPARISON: None. FINDINGS: Thoracic spine curvature and alignment: Normal. Bones: There are no osseous abnormalities. Disc spaces: Mild degenerative disc disease seen throughout the upper midthoracic spine Soft tissues: No soft tissue swelling, calcification or mass. 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 on 06/15/2025 at 12:35 Approved by: Sarthak Dozier M.D. on 06/15/2025 at 12:36
== END ==
LOC: RAD 17:16
PROVIDERS: PCP Family Medicine; Referring Provider Family Medicine; Visit Provider Family Medicine
DX: M54.12 Radiculopathy, cervical region (principal); M51.34 Other intervertebral disc degeneration, thoracic region; M54.9 Dorsalgia, unspecified; G89.29 Other chronic pain
CPT/HCPCS: 72040; 72072